=== PATIENT | male | born 2000 | race Caucasian/White ===

== ENCOUNTER → 2020-03-31 | Emergency (ER) | payer OTHER, SELFPAY ==
[~2020-03-31] MED LIST: Acetaminophen/Codeine 30-300mg Tablet ONE; Iopamidol 370 76% 100 ML VIAL ONE; Ketorolac Tromethamine 30 MG/ML VIAL ONE; Morphine 4 MG/ML VIAL ONE; Ondansetron PF 4 MG/2 ML Vial ONE
[2020-03-31 08:45] LABS: #Basophils 0.1 thou/uL (0.0-0.2); #Eosinphils 0.2 thou/uL (0.0-0.7); #Lymphocytes 3.6 thou/uL (1.20-3.40); #Monocytes 0.6 thou/uL (0.11-0.59); #Neutrophils 5.9 thou/uL (1.40-6.50); %Basophils 1.2 % (0.0-1.0); %Lymphocytes 34.3 % (28.0-48.0); %Monocytes 5.6 % (0.0-4.0); %Neutrophils 56.8 % (31.0-61.0); Hemoglobin 15.3 g/dL (14.0-18.0); Mean Corpuscular HGB CONC 32.9 g/dL (32.0-36.0); Mean Corpuscular Hemoglobin 29.7 pg (25.0-35.0); Mean Corpuscular Volume 90.2 fL (78.0-98.0); Mean Platelet Volume 8.2 fL (7.4-10.4); Platelet Count 274 thou/uL (130-400); RBC Distribution Width 11.5 % (11.5-14.5); Red Blood Cell (RBC) Count 5.14 mill/uL (4.00-5.20); White Blood Cell (WBC) Count 10.3 thou/uL (4.8-10.8)
[2020-03-31 08:55] LABS: AST (SGOT) 15 U/L (10-45); Albumin 4.7 g/dL (3.5-5.0); Alkaline Phosphatase 73 U/L (50-130); Anion Gap 16 mmol/L (10-20); BUN (Urea Nitrogen) 15 mg/dL (8.4-21.0); Bilirubin, Total 0.3 mg/dL (0.2-1.2); Calc. Creatinine Clearance 0 mL/min (70-130); Calcium 9.4 mg/dL (7.8-10.44); Carbon Dioxide 25 mmol/L (22-29); Chloride 105 mmol/L (98-107); Estimated GFR-MDRD Greater than 90; Globulin 2.5 g/dL (2.4-3.5); Glucose 119 mg/dL (70-105); Lipase 28 U/L (8-78); Potassium 3.6 mmol/L (3.5-5.1); Protein, Total 7.2 g/dL (6.0-8.3); Sodium 142 mmol/L (136-145)
[2020-03-31 09:13] LABS: ALT (SGPT) 27 U/L (8-55)
[2020-03-31 09:46] LABS: Bilirubin Negative (Negative); Blood, Urine Small (Negative); Clarity Clear (Clear); Glucose, Urine (Dipstick) Negative (Negative); Ketone, Urine Negative (Negative); Leukocyte Negative (Negative); Nitrite Negative (Negative); Protein, Urine (Dipstick) Negative (Neg-Trace); Specific Gravity, Urine 1.015 (1.005-1.030); Urobilinogen 0.2 mg/dL (Less than 2); pH, Urine 5.5 (5.0-9.0)
[2020-03-31 09:55] LABS: Bacteria/HPF None Seen HPF (None Seen); RBC/HPF 0-3 HPF (0-3); Squamous Epithelial 0-3 HPF (0-3); WBC/HPF None Seen HPF (0-3)
--- NOTE | 2020-03-31 20:28 | CT ---
CT ABDOMEN AND PELVIS WITH CONTRAST: Date: 03-31-[address] of the abdomen and pelvis was done after giving IV contrast. Oral contrast was withheld by request. FINDINGS: The lung bases are clear. There are no effusions. There may be the beginnings of a very small hiatal hernia. The liver, spleen, pancreas, adrenal glands, gallbladder and kidneys showed no acute findings . The aorta is normal in caliber. CT of the pelvis showed no pelvic masses, fluid collections, or inflammatory changes. There is a very tiny calcification near the right UVJ. I cannot tell for sure if this is in the ureter or immediatel y outside of it. There is no gross hydronephrosis involving the right kidney, though the renal pelvis on this is marginally larger than the right and the right ureter is marginally larger than the left. The bowel shows no distention, wall thickening, or inflammatory change around it. The appendix was id entified and appears normal. No free air or free fluid was detected. IMPRESSION: 1. No evidence of appendicitis. 2. Equivocal tiny calcification near the right UVJ by the bladder. This could be a tiny distal ureter al calculus that is essentially nonobstructing, though most of the images suggest this may be outside of the ureter. Correlate with clinical exam and urinary findings. Findings discussed with Dr. Waldron at 0910 on 03-31-2020. POS: HOME
== END ==
LOC: BURERS 08:16
DX: N20.1 Calculus of ureter (principal); F41.9 Anxiety disorder, unspecified; Z77.22 Contact with and (suspected) exposure to environmental tobacco smoke (acute) (chronic)
CPT/HCPCS: 74177; 80053; 81003; 81015; 83605; 83690; 85025; 96374; 96375; J1885; J2270; J2405; Q9967